=== PATIENT | female | born 1990 | race Caucasian/White ===

== ENCOUNTER 2018-02-03 12:06 | Emergency (ER) | payer BC, OTHER ==
[2018-02-03 14:34] VITALS: BP 101/73
[2018-02-03] MEDS ORDERED: Lidocaine 1% MPF* 2 ML VIAL INJ ONE (14:36)
[2018-02-03] MEDS ORDERED: Ibuprofen ADULT LIQ* 600 MG/30 ML UDC PO ONE (14:37)
--- NOTE | 2018-02-03 14:49 | UC ---
UC General HPI - HPI Summary HPI Summary: pt c/o cyst to r armpit x 1 week with worsening. she poked it . it is worsening. no hx same of MRSA. denies fever. - History of Current Complaint Chief Complaint: UCGeneralIllness Stated Complaint: skin complaint Time Seen by Provider: 02/03/18 14:30 Hx Obtained From: Patient Hx Last Menstrual Period: has IUD/[place] Onset/Duration: Gradual Onset Timing: Constant Pain Intensity: 7 Aggravating: nothing Alleviating: nothing Associated Signs & Symptoms: Negative: Fever - Allergy/Home Medications Allergies/Adverse Reactions: Allergies Allergy/AdvReac Type Severity Reaction Status Date / Time No Known Allergies Allergy Verified 02/03/18 14:30 Home Medications: Home Medications FLUoxetine* [PROzac*] 20 mg PO DAILY 02/03/18 [History Confirmed 02/03/18] PMH/Surg Hx/FS Hx/Imm Hx Respiratory History: Asthma Psychological History: Depression - Surgical History Surgical History: Yes Surgery Procedure, Year, and Place: tonsillectomy. wisdom teeth removal - Family History Known Family History: Positive: None - Social History Occupation: Employed Full-time Lives: With Family Alcohol Use: None Alcohol Amount: 1-2 times a week Substance Use Type: None Smoking Status (MU): Current Some Day Smoker Type: Cigarettes - Immunization History Vaccination Up to Date: Yes Review of Systems Constitutional: Negative Skin: Rash - swelling R axilla Eyes: Negative ENT: Negative Respiratory: Negative Cardiovascular: Negative Gastrointestinal: Negative Genitourinary: Negative Motor: Negative Neurovascular: Negative Musculoskeletal: Negative Neurological: Negative Psychological: Negative Is Patient Immunocompromised?: No All Other Systems Reviewed And Are Negative: Yes Physical Exam Triage Information Reviewed: Yes Appearance: Well-Appearing Vital Signs: Initial Vital Signs Temp 98.5 F 02/03/18 14:26 Pulse 109 02/03/18 14:26 Resp 18 02/03/18 14:26 BP 101/73 02/03/18 14:26 Pulse Ox 99 02/03/18 14:26 Vital Signs Reviewed: Yes Eyes: Positive: Conjunctiva Clear ENT: Positive: Normal ENT inspection Neck: Positive: Supple, Nontender, No Lymphadenopathy Respiratory: Positive: Lungs clear, Normal breath sounds Cardiovascular: Positive: RRR, No Murmur Abdomen Description: Positive: Nontender, No Organomegaly, Soft Bowel Sounds: Positive: Present Musculoskeletal: Positive: ROM Intact Neurological: Positive: Alert Psychological: Positive: Age Appropriate Behavior Skin Exam: Normal Skin: Positive: Other - R axilla with erythema, swelling and central fluctuance. erythema extends to the arm. Area is tender Procedures - Procedure Summary Procedure Summary: time out done. site prep betadine. linear local with 1% lidocaine, 2ml. tip #11 scot used to make superficial stab and incision, puss drained and cultured. blunt forced used to explore site/irrigated sterile water. moderated puss drained. plain pack placed thenocovered with sterile gauze and held with paper tape. sterile technique used. minimal bleeding. pt tolerated well. cellulitis marked. Course/Dx - Course Course Of Treatment: abscess with cellulitis. will cover with Bactrim. need for close f/u strussed. - Differential Dx - Multi-Symptom Provider Diagnoses: abscess r axilla, cellulitis R axilla Discharge - Sign-Out/Discharge Documenting (check all that apply): Discharge/Admit/Transfer - Discharge Plan Condition: Stable Disposition: HOME Prescriptions: Sulfamethox/Trimethoprim DS* [Bactrim DS 800/160 TAB*] 1 tab PO BID #20 tab Patient Education Materials: Cellulitis (ED), Abscess Incision and Drainage (DC ) Referrals: Jenna Gomez [Primary Care Provider] - 2 Days - Billing Disposition and Condition Condition: STABLE Disposition: HOME
== END 2018-02-03 15:16 | disposition home or self-care (01) ==
LOC: UCCORT 12:06
DX: F17.210 Nicotine dependence, cigarettes, uncomplicated (principal); L02.411 Cutaneous abscess of right axilla; B95.62 Methicillin resistant Staphylococcus aureus infection as the cause of diseases classified elsewhere; L03.111 Cellulitis of right axilla; F32.9 Major depressive disorder, single episode, unspecified
CPT/HCPCS: 10060; 87070; 87077; 87186; 87205; 87640; 87641; 99212; A9270-GY; G0463